=== PATIENT | male | born 1970 | race Caucasian/White ===

== ENCOUNTER 2024-03-10 06:58 | Emergency (ER) | payer BC ==
[2024-03-10] MEDS: Water For Injection, Sterile 20 ML ONE (07:41)
[2024-03-10] MEDS: Water For Injection, Sterile 10 ML SDV INJECT ONE (07:42)
[2024-03-10] MEDS: ceFAZolin 1 GM Vial IM ONE (07:42)
[2024-03-10] MEDS: Lidocaine 1% PF 2 ML SDV INJECT ONE (07:42)
[2024-03-10] MEDS: Diphtheria,Pertussis(Acell),Tetanus Vaccine 0.5 ML Syringe IM ONE (07:48)
== END 2024-03-10 08:07 | disposition home or self-care (01) ==
LOC: MW.ED 06:58
DX: T80.89XA Other complications following infusion, transfusion and therapeutic injection, initial encounter (principal); Z23 Encounter for immunization; I11.0 Hypertensive heart disease with heart failure; I50.9 Heart failure, unspecified; Z79.899 Other long term (current) drug therapy; Z75.8 Other problems related to medical facilities and other health care
CPT/HCPCS: 90471; 90715; 96372; 99283; J0690; J3490